=== PATIENT | male | born 1975 | race Caucasian/White ===

== ENCOUNTER → 2018-02-15 | Day surgery (SDC) | payer OTHER ==
[~2018-02-15] VITALS: Ht 180.3 cm; Wt 76.2 kg
[~2018-02-15] MED LIST: IRON325 M1 PO; ONCE DAILY1 EACH PO; PRILOSEC20 M1 PO
[2018-02-15 11:23] VITALS: BP 131/92
[2018-02-15 14:43] VITALS: BP 101/57
[2018-02-15 14:58] VITALS: BP 110/71
[2018-02-15 15:13] VITALS: BP 112/50
== END | disposition home or self-care (01) ==
LOC: SDC 02-11 11:00
DX: K57.30 Diverticulosis of large intestine without perforation or abscess without bleeding (principal); K64.8 Other hemorrhoids; K29.70 Gastritis, unspecified, without bleeding; K22.70 Barrett's esophagus without dysplasia; K44.9 Diaphragmatic hernia without obstruction or gangrene; Z98.890 Other specified postprocedural states; Z86.010 Personal history of colon polyps; Z88.0 Allergy status to penicillin; Z88.8 Allergy status to other drugs, medicaments and biological substances; D50.9 Iron deficiency anemia, unspecified